=== PATIENT | female | born 1980 | race Caucasian/White ===

== ENCOUNTER 2016-12-12 16:01 | Emergency (ER) | payer OTHER ==
[~2016-12-12] VITALS: Ht 162.6 cm; Wt 72.6 kg
[~2016-12-12 16:01] MED LIST: AMOXICILLIN500 M3 PO; BACTRIM 400-801 EACH PO; BACTRIM DS 8001 TAB PO; FISH OIL CONC1000 MG PO; IBUPROFEN800 MG PO; MULTIVITAMIN1 TAB PO; PERCOCET 5-3251 EACH PO; PERCOCET 500 MG1 TAB PO; PREDNISONE10 MG PO; PRENATAL1 TA2 PO; SERTRALINE HYD100 MG PO; VICODIN5-300 PO
[2016-12-12 16:05] VITALS: BP 116/74
--- NOTE | 2016-12-12 16:05 | ED SKIN/ALLERGY COMPLAINT ---
History of Present Illness General Chief Complaint: Skin Rash/ Abcess Stated Complaint: PT ABSCESS ON THE RIGHT SIDE Source: patient, old records Exam Limitations: no limitations Vital Signs & Intake/Output Vital Signs & Intake/Output Vital Signs Date Time Temp Pulse Resp B/P Pulse O2 O2 Flow FiO2 Ox Delivery Rate 12/12 1605 98.4 80 18 116/74 97 Room Air Allergies Coded Allergies: MDX - Azithromycin (RASH, LIP SWELLING 11/29/14) MDX - Vancomycin (VANCOMYCIN) (MUSCLE CRAMPING, JOINT PAIN 11/29/14) Reconcile Medications Amoxicillin 500 MG TABLET 1 TAB PO TID CELLULITIS Amoxicillin/Potassium Clav (Augmentin 875-125 Tablet) 875 MG-125 MG TABLET 1 TAB PO BID dental abscess Fish Oil (Fish Oil Concentrate) (Unknown Strength) SGL (Unknown Dose) PO DAILY SUPPLEMENT (Reported) HYDROCODONE/ACETAMINOPHEN (Hydrocodon-Acetaminophen 5-325) 1 EACH TABLET 1 TAB PO Q6HR PRN PAIN Multivitamin (Multiple Vitamins) 1 EACH TABLET 1 TAB PO DAILY SUPPLEMENT ( Reported) Oxycodone HCl/Acetaminophen (Percocet 5-325 MG Tablet) 1 EACH TABLET 1-2 TAB PO Q6P PRN PAIN Oxycodone HCl/Acetaminophen (Percocet 5-325 MG Tablet) 5 MG-325 MG TABLET 1 TAB PO BID PRN breakthrough pain Prednisone 10 MG TABLET 0 TAB PO DAILY ECZEMA 3 TABS A DAY X 3 DAYS 2 TABS A DAY X 3 DAYS 1 TABS A DAY X 3 DAYS SERTRALINE HCL (Sertraline Hydrochloride) 100 MG TABLET 1 TAB PO DAILY DEPRESSION (Reported) Sulfamethoxazole/Trimethopri (Bactrim Ds 800 MG-160 MG) 1 TAB TAB 1 TAB PO BID CELLULITIS Sulfamethoxazole/Trimethoprim (Bactrim 400-80 MG Tablet) 1 EACH TABLET 1 TAB PO BID CELLULITIS Triage Nurses Notes Reviewed? yes Onset: Abrupt Duration: day(s): (3), constant Timing: recent history Severity: moderate Severity Numbers: 7 Location: MOUTH Possible Factors: CRACKED TOOTH Associated Symptoms: DENIES HPI: 36 Year old female presents complaining of right upper dental pain for the past few days-sudden in onset. pt states she cracked the tooth a long time ago however has been putting off getting pulled. no sore throat, fever, chills. no change in her voice, difficulty swallowing, cough or any other symptoms. pain si worse with eating and palpationg. pt has been taking tylenol/motrin without improvement. scheduled to see dentist on wednesday of this upcoming week. no facial swelling, trauma or other injury.l Past History Travel History Traveled to [place] past 21 day No Medical History Any Pertinent Medical History? 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 No Review of Systems Review of Systems Constitutional: Reports: see HPI. All Other Systems: Reviewed and Negative Comments Review of systems: See HPI, All other systems negative. Constitutional, no chills no fever, no malaise HEENT: No visual changes no sore throat no congestion Cardiovascular: No chest pain , no palpitation Skin, no rashes, no change in skin Respiratory: No dyspnea no cough no sputum GI: No nausea no vomiting, : No dysuria Muscle skeletal: No joint pain, no back pain, no neck pain, Neurologic: No numbness no headache Psych: No stress Heme/endocrine: No bruising no bleeding Immunology: No lymphadenopathy Physical Exam Physical Exam General Appearance: well developed/nourished, no apparent distress, alert, awake Comments: Well-developed well-nourished patient in no apparent distress. HEENT: Atraumatic, extraocular motion intact, MOIST MUCOUS MEMBRNES, (+) R UPPER DENTAL TENDERNESS, SMALL GINGIVAL ABSCESS, PHARYNX IS WNL, NO ERYTHEMA, NO EXUDATE Neck: Supple, FROM, no lymphadenopathy Back: FROM Cardiovascular: Regular rate and rhythms no murmurs rubs Respiratory: No respiratory distress. Patient speaking in full complete sentences. Breath sounds clear to auscultation bilaterally: NO W/R/R Extremities: full range of motion Neuro: Alert and oriented x3 Skin: Warm & dry;No appreciable rash on exposed skin Psych: Mood affect normal, normal memory normal judgment. Progress Differential Diagnosis: DENTAL ABSCESS, TOOTHACHE, PAROTITIS, SILADOLITHIASIS, LUDWIGS ANGINA, EPIGLOTTITS Plan of Care: PT CLINICALLY APPEARS WELL, SCHEDULED TO SEE DENTIST IN 4 DAYS. RX FOR PERCOCET AND AUGMENTIN PROVIDED. SHE FEELS COMFORTABLE WITH PLAN, I ANSWERED ALL OF HER QUESTIONS. Departure Departure Time of Disposition: 0 Disposition: HOME OR SELF CARE Condition: Stable Clinical Impression Primary Impression: Dental abscess Referrals: HENNA MCCULLOUGH MD (PCP/Family) Additional Instructions: follow up with your dentist as scheduled on wednesday. augmentin as directed, percocet for breakthrough pain- no driving or drinking alcohol while taking. ibuprofen 800mg eveyr 8 hours. return to the er with any concerns these prescriptions were sent to your [facility] pharmacy. Departure Forms: Customer Survey General Discharge Information Prescriptions: Current Visit Scripts Amoxicillin/Potassium Clav (Augmentin 875-125 Tablet) 1 TAB PO BID #14 TAB Oxycodone HCl/Acetaminophen (Percocet 5-325 MG Tablet) 1 TAB PO BID PRN breakthrough pain #10 TAB
[2016-12-12] MEDS ORDERED: PERCOCET 5-3251 EACH PO (16:22)
[2016-12-12] MEDS ORDERED: AUGMENTIN 875-1 EACH PO ×2 (16:22→18:40)
== END 2016-12-12 16:32 ==
LOC: ERH 16:01
DX: K04.7 Periapical abscess without sinus (principal)

== ENCOUNTER 2017-11-20 15:10 | Emergency (ER) | payer OTHER ==
[~2017-11-20] VITALS: Ht 162.6 cm; Wt 75.3 kg
[~2017-11-20 15:10] MED LIST changes: +AMOXICILLIN875 M1 PO; +AUGMENTIN 875-1 EACH PO; +BACTRIM DS TAB1 EACH PO; +LORAZEPAM0.5 M1 PO; +REXULTI2 M1 PO; +TRIAMCINOLONE A15 G1 TOP; +VESICARE10 MG PO; +ZOLOFT100 M1 PO
--- NOTE | 2017-11-20 15:37 | ED PSYCHIATRIC COMPLAINT ---
History of Present Illness General Chief Complaint: Psychiatric Related Complaint Stated Complaint: PT POSTIVE FOR SI Source: patient, family Exam Limitations: no limitations Vital Signs & Intake/Output Vital Signs & Intake/Output Vital Signs Date Time Temp Pulse Resp B/P B/P Pulse O2 O2 Flow FiO2 Mean Ox Delivery Rate 11/20 1813 89 19 114/69 97 Room Air 11/20 1725 Room Air 11/20 1516 96.8 91 18 133/88 98 Room Air ED Intake and Output 11/21 0000 11/20 1200 Intake Total 100 Output Total Balance 100 Intake, Oral 100 Patient 166 lb Weight Weight Estimated Measurement Method Allergies Coded Allergies: adhesive tape (UNKNOWN 07/09/17) ADHESIVE TAPE PER ANTIBIOTIC ORDER SHEET OF 06/17/17 (SJS) azithromycin (From ZITHROMAX) (RASH, LIP SWELLING 07/09/17) vancomycin (MUSCLE CRAMPING, JOINT PAIN 07/09/17) Reconcile Medications Amoxicillin 875 MG TABLET 1 TAB PO BID cellulitis/abscess Brexpiprazole (Rexulti) 2 MG TABLET 1 TAB PO DAILY DEPRESSION (Reported) Lorazepam 0.5 MG TABLET 1 TAB PO BIDP PRN ANXIETY (Reported) Oxycodone HCl/Acetaminophen (Percocet 5-325 MG Tablet) 5 MG-325 MG TABLET 1-2 TAB PO BID pain Sertraline HCl (Zoloft) 100 MG TABLET 2 TAB PO DAILY DEPRESSION (Reported) Solifenacin Succinate (Vesicare) 10 MG TABLET 1 TAB PO QPM BLADDER (Reported) Sulfamethoxazole/Trimethoprim (Bactrim Ds Tablet) 800 MG-160 MG TABLET 1 TAB PO BID cellulitis Triamcinolone Acetonide 0.1 % CREAM..G. 1 MAISHA TOP BID ECZEMA Triage Note: PATIENT TO ER C/C +SI LAST NIGHT, WALKED INTO TRAFFIC ON [address] PATIENT DENIES SI/HI AT THIS TIME. DENIES DAILY ETOH/DRUG USE, ADMITS TO HAVING A FEW DRINKS LAST NIGHT. PATIENT CALM AND COOPERATIVE IN TRIAGE WITH SPOUSE. Triage Nurses Notes Reviewed? yes Onset: Gradual Duration: worse persistent since (1 day) Timing: recent history Severity: moderate Associated Symptoms: anxiety, impaired concentration, injury, suicidal ideation : No Patient currently breastfeeds: No HPI: pt is a 37-year-old female with history of anxiety and depression presenting to the emergency department with chief complaint of suicidal ideation. She reports that her depression has been increasing over the past 2 weeks. Denies change in medications. She still has been taking medications as prescribed. Denies any homicidal ideation. She reports that she had a few alcoholic beverages yesterday evening and tried to walk into traffic but was stopped by someone. Denies any current suicidal ideation. Denies homicidal ideation. No auditory or visual hallucinations. Drinks occasionally. Denies drug use. (Garima Finn) Past History Travel History Traveled to [place] past 21 day No Medical History Any Pertinent Medical History? 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 No (Garima Finn) Review of Systems Review of Systems Constitutional: Reports: no symptoms. Comments Review of systems: See HPI, All other systems negative. Constitutional, no chills fever or weight loss HEENT: No visual changes no sore throat no congestion Cardiovascular: No chest pain ,palpitation , orthopnea or ankle swelling Skin, no jaundice no rashes Respiratory: No dyspnea cough sputum or hemoptysis GI: No nausea no vomiting : No dysuria No hematuria Muscle skeletal: no back pain, no neck pain, Neurologic: No numbness no confusion, no headaches Psych: Positive stress, anxiety and depression Heme/endocrine: No bruising no bleeding no polyuria or polydipsia Immunology: No splenectomy or history of AIDS (Garima Finn) Physical Exam Physical Exam General Appearance: well developed/nourished, no apparent distress, alert, awake , comfortable Neurological/Psychiatric: oriented x 3 Comments: Well-developed well-nourished person in no acute distress HEENT: Atraumatic, normocephalic Neck: Normal inspection Cardiovascular: Regular rate and rhythms no murmurs rubs or gallops, normal JVP Respiratory: Chest nontender. No respiratory distress.breath sounds clear to auscultation bilaterally Extremity: No edema Neuro: Alert oriented x3 Skin: No appreciable rash on exposed skin, skin is warm and dry. Psych: depressed mood, flat affect, memory and judgment is normal. SAD PERSONS SAD PERSONS Response Value Depression/Hopelessness? yes 2 Previous Attempts/Psych Care yes 1 Rational Thinking Loss? yes 2 Organized/Serious Attempt yes 2 Social Support? has support 0 Total 7 SAD PERSONS Done? yes (Kadie GUAN,Garima) Progress Differential Diagnosis: drug intoxication, drug overdose, drug withdrawal, hypoglycemia, hypothyroidism, depressive disorder, generalized anxiety disorder, mood disorder Plan of Care: Orders Procedure Date/time Status Continuous Observation Monitor 11/20 153 Active URINE 11/20 153 Complete URINE DRUG SCREEN FOR ER ONLY 11/20 153 Complete TSH REFLEX 11/20 153 Complete ETHANOL 11/20 1536 Complete COMPREHENSIVE METABOLIC PANEL 11/20 1536 Complete CBC WITHOUT DIFFERENTIAL 11/20 1536 Complete ED CRISIS PSYCH CONSULT 11/20 153 Active Laboratory Tests 11/20/17 1709: Urine Opiates Screen < 100.00, Methadone Screen < 40, Barbiturate Screen < 60, Ur Phencyclidine Scrn < 6.00, Amphetamines Screen 366, U Benzodiazepines Scrn < 85, Urine Cocaine Screen < 50, Urine Cannabis Screen < 5.00, Urine Test NEGATIVE 11/20/17 1617: Anion Gap 9, Estimated GFR > 60, BUN/Creatinine Ratio 17.1, Glucose 89, Calcium 9.4, Total Bilirubin 0.4, AST 20, ALT 30, Alkaline Phosphatase 86, Total Protein 7.3, Albumin 4.2, Globulin 3.1, Albumin/Globulin Ratio 1.4, TSH &T3 &Free T4 Intrp 1.150, CBC w Diff NO MAN DIFF REQ, RBC 4.44, MCV 87.0, MCH 28.3, MCHC 32.6 L, RDW 14.5, MPV 8.4, Gran % 64.1, Lymphocytes % 24.4, Monocytes % 6.8, Eosinophils % 4.4, Basophils % 0.3, Absolute Granulocytes 4.2, Absolute Lymphocytes 1.6, Absolute Monocytes 0.5, Absolute Eosinophils 0.3, Absolute Basophils 0, Serum Alcohol < 10.0 Comments: 11/20/2017 7:48:16 PM social media manager spoke with on-call psychiatrist. They believe that patient has protective factors and will have close follow-up and patient not currently suicidal. Patient was cleared by crisis for discharge and follow-up with outpatient treatment. Patient and family feel comfortable going home. Denies any suicidal or homicidal ideation. 11/20/2017 8:40:40 PM social media manager was able to speak with the patient's psychiatrist. CLEARED FOR DISCHARGE HOME. (Garima Finn) Departure Departure Time of Disposition: 2040 Disposition: HOME OR SELF CARE Condition: Stable Clinical Impression Primary Impression: Depression with suicidal ideation Referrals: Tre SANFORD,Apryl (PCP/Family) Additional Instructions: FOLLOW Up with recommendations made by crisis FO RMONDAY MORNING. Return if YOU develop any suicidal ideation ,HOMICIDAL IDEATION, worsening symptoms or concerns. Take all medications as prescribed. Avoid any alcohol or illicit drug use. Departure Forms: Customer Survey General Discharge Information (Garima Finn) PA/APPRENTICE COOK Co-Sign Statement Statement: ED Attending supervision documentation- [] I saw and evaluated the patient. I have also reviewed all the pertinent lab results and diagnostic results. I agree with the findings and the plan of care as documented in the PA's/APPRENTICE COOK's documentation. [x] I have reviewed the ED Record and agree with the PA's/APPRENTICE COOK's documentation. [] Additions or exceptions (if any) to the PAs/APPRENTICE COOK's note and plan are summarized below: [] (Tania SANFORD,Andres Gordon)
--- NOTE | 2017-11-20 15:42 | ED PSY CRISIS COLLATERAL NOTE ---
Collateral Note Collateral Note Family/Inform/Susan Contacts: Crisis recieved call from patient this morning. She was originally looking to speak with someone at [facility]. Pt only gave her first name "Sary" stating that she spoke to her psychiatrist, whom she did not identify, and she recommended that she follow up with [facility]. Pt shared that last night she had a little to drink and was [place] traffic [place] [address]. Pt reports she was not feeling suicidal at the time and the protector factors identified were her children were home with her as well as her . Pt was encouraged to come to the ED for a crisis evaluation.
[2017-11-20 16:23] LABS: ABSOLUTE BASOPHIL COUNT 0 /CUMM (0.0-0.2); ABSOLUTE EOSINOPHIL COUNT 0.3 /CUMM (0.0-0.7); ABSOLUTE GRANULOCYTE CT 4.2 /CUMM (1.4-6.5); ABSOLUTE LYMPH COUNT 1.6 /CUMM (1.2-3.4); ABSOLUTE MONOCYTE COUNT 0.5 /CUMM (0.10-0.60); BASOPHIL % 0.3 % (0.0-2.0); EOSINOPHIL % 4.4 % (0-5); GRANULOCYTE % 64.1 % (42.2-75.2); HEMATOCRIT 38.6 % (37-47); MEAN CORPUSCULAR HGB 28.3 PG (27.0-31.0); MEAN CORPUSCULAR HGB CONC 32.6 G/DL (33.0-37.0); MEAN PLATELET VOLUME 8.4 FL (7.4-10.4); PLATELET COUNT 278 /CUMM (130-400); RBC DISTRIBUTION WIDTH 14.5 % (11.5-14.5); RED BLOOD CELL CT 4.44 /CUMM (4.20-5.40); WHITE BLOOD CELL COUNT 6.6 /CUMM (4.8-10.8)
[2017-11-20 18:13] VITALS: BP 114/69
--- NOTE | 2017-11-20 20:54 | ED PSYCH CRISIS CONSULTATION ---
Crisis Consult Basic Assessment Date of Consult: 11/20/17 Responsible Person/Accompanied By: Self/ Insurance Authorization: Insurance #1: Insurance name: [employer] Phone number: Policy number: [id number] Group number: [id number] Authorization number: ED Provider: Patient's ED Provider: Garima Finn Primary Care Physician: Patient's PCP: Apryl Toledo MD PCP's Current Psychiatrist: Aaron Oconnor MD Chief Complaint: Psychiatric Related Complaint Patient's Quote: "I understand I need to ask for help" Present Illness: Pt is a 37 year old female referred to the ED by Génesis Gaxiola APRN. Pt reports she has been "really depressed for the past two weeks". Pt said on 11/19/17, she went out to a birthday constitution party with friends after work at [employer] in [place] and she drank T. Vodka, she was feeling overwhelmed and was throwing up and she wanted to escape. Pt walked into traffic on the [address], as she got to the other side of the road her friends were attempting to hold her she became belligerent and aggressive towards them. Pt states I realized I almost got hurt and I wasn't allowing my friends to help me. Pt then said "I don't want to hurt myself" However, "it was enough to scare me" Pt presents with a flat affect, she report continuous feelings of depression and anxiety. Pt denies current thoughts of suicide and said she does not have a history of suicide attempts. Pt was alert and oriented. She denies feeling suicidal now and denied AH/VH. Pt resides in [place] with her of 18 years and their children, ages 16, 11 and 3. 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 Current stressors, she was attempting to complete an RN course online and became overwhelmed and stopped. Recently, she learned that the [facility] is garnishing her paycheck for unpaid taxes. Pt states she lost her grandfather approximately 1 year ago and she was very close to him. She is still grieving that loss. Pt reports strong family history of mental illness both parents, father Bipolar and mother depression and anxiety. Pt states she was diagnosed with Depression in 2007 and treated with Zoloft 200mg and Rexulti 3mgs. Pt is treated by Génesis Gaxiola APRN at [facility] in [place]. Pt has an appointment with Ms. Gaxiola on Wednesday11/22/17 at 6pm. Pt's Utox was negative. Pt states she does not have a drinking problem and she does not drink alcohol daily. Phone contact with Génesis Gaxiola who said she spoke to the pt today and sent her to the ED for an evaluation because the pt told her she walked out into traffic. She said the pt told her she almost hurt herself walking into traffic and that the pt felt scare and concerned. Also, Génesis described the pt as high anxiety, depressed, with a "wishy washy" type presentation and a personality disorder. Génesis was unsure about whether the pt was safe and so she sent the pt to the ED for an evaluation and encouraged the pt to inquire about an intake for IOP. Patient's Address: [address] [place] [address] Other Phone Number: Who Do You Live With? Family Family/Informants Interviewed: Face to Face with pt's Stevie. He states does not believe his is suicidal. He vows his is not an alcoholic. Both the pt and her agreed to a safety plan for her this weekend, until she is able to get to her appointments next week. Allergies - Coded Allergies: adhesive tape (UNKNOWN 07/09/17) ADHESIVE TAPE PER ANTIBIOTIC ORDER SHEET OF 06/17/17 (SJS) azithromycin (From ZITHROMAX) (RASH, LIP SWELLING 07/09/17) vancomycin (MUSCLE CRAMPING, JOINT PAIN 07/09/17) Current Medications - Scheduled Medications Amoxicillin 875 MG TABLET 1 TAB PO BID cellulitis/abscess #20 TAB Prescribed by Hamlet Angela on 07/09/17 Brexpiprazole (Rexulti) 2 MG TABLET 1 TAB PO DAILY DEPRESSION (Reported) Entered as Reported by Argenis Vora on 06/14/17 1157 Oxycodone HCl/Acetaminophen (Percocet 5-325 MG Tablet) 5 MG-325 MG TABLET 1-2 TAB PO BID pain #10 TAB Prescribed by Hamlet Angela on 07/11/17 Sertraline HCl (Zoloft) 100 MG TABLET 2 TAB PO DAILY DEPRESSION (Reported) Entered as Reported by Argenis Vora on 06/14/17 1157 Solifenacin Succinate (Vesicare) 10 MG TABLET 1 TAB PO QPM BLADDER #30 ( Reported) Entered as Reported by Karan Gutierrez on 07/09/17 1256 Sulfamethoxazole/Trimethoprim (Bactrim Ds Tablet) 800 MG-160 MG TABLET 1 TAB PO BID cellulitis #20 TAB Prescribed by Hamlet Angela on 07/09/17 Triamcinolone Acetonide 0.1 % CREAM..G. 1 MAISHA TOP BID ECZEMA #1 TUBE Prescribed by Rik Cast on 07/13/17 Scheduled PRN Medications Lorazepam 0.5 MG TABLET 1 TAB PO BIDP PRN ANXIETY #60 (Reported) Entered as Reported by Karan Gutierrez on 07/09/17 1256 Laboratory Results: Laboratory Tests 11/20/17 1709: Urine Opiates Screen < 100.00, Methadone Screen < 40, Barbiturate Screen < 60, Ur Phencyclidine Scrn < 6.00, Amphetamines Screen 366, U Benzodiazepines Scrn < 85, Urine Cocaine Screen < 50, Urine Cannabis Screen < 5.00, Urine Test NEGATIVE 11/20/17 1617: Anion Gap 9, Estimated GFR > 60, BUN/Creatinine Ratio 17.1, Glucose 89, Calcium 9.4, Total Bilirubin 0.4, AST 20, ALT 30, Alkaline Phosphatase 86, Total Protein 7.3, Albumin 4.2, Globulin 3.1, Albumin/Globulin Ratio 1.4, TSH &T3 &Free T4 Intrp 1.150, CBC w Diff NO MAN DIFF REQ, RBC 4.44, MCV 87.0, MCH 28.3, MCHC 32.6 L, RDW 14.5, MPV 8.4, Gran % 64.1, Lymphocytes % 24.4, Monocytes % 6.8, Eosinophils % 4.4, Basophils % 0.3, Absolute Granulocytes 4.2, Absolute Lymphocytes 1.6, Absolute Monocytes 0.5, Absolute Eosinophils 0.3, Absolute Basophils 0, Serum Alcohol < 10.0 Past History Past Medical History Neurological: NONE, SKIN RASH EENT: NONE Cardiovascular: NONE Respiratory: NONE Gastrointestinal: NONE Hepatic: NONE Renal: NONE Musculoskeletal: MRSA IN WOUNDS Psychiatric: anxiety, depression Endocrine: NONE Blood Disorders: NONE Cancer(s): NONE STARS SPECIALIST/Reproductive: NONE Past Surgical History Surgical History: none Psychosocial History Strengths/Capabilities: Pt's is supportive 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 Physical Limitations (Interventions): None Psychiatric Treatment History Psych Treatment Psychiatric Treatment Yes Inpatient Treatment No Outpatient Treatment Yes Location of Treatment [facility] Reason for Treatment Depression & Anxiety Dates of Treatment Since 2012 Response to Treatment Positive Diagnosis by History: Depression Anxiety Substance Use/Abuse History Drug Use/Abuse Substances Used/Abused Yes Substance Used/Abused Alcohol First Use Age 25 Last Used 11/19/17 How much used/taken Unknown How often Occasionally For how long N/A Route of use Oral Substance Abuse Treatment Substance Abuse Treatment Past Substance Abuse [place] No Inpatient Treatment No Outpatient Treatment No Location of Treatment N/A Reason for Treatment N/A Dates of Treatment N/A Response to Treatment N/A Current Mental Status Mental Status Orientation: Person, Place, Situation Affect: Anxious, Flat, Sad Speech: Soft Neuro-vegetative: Sleep Disturbance Appearance Appearance- Dress/Hygiene: Clean, groomed, hospital clothing Behaviors Thought Process: WNL Thought Content: WNL Memory: WNL Insight: Fair SI/HI Risk Assessment Past Suicidal Ideation/Attempts No Current Suicidal Ideation/Att No Past Homicidal Ideation/Att: No Degree of Intent: None Danger To: N/A Gravely Disabled: N/A Risk Factors: high anxiety/distress Lethality Ratin PTSD Checklist PTSD Done? patient declined ED Management Sitter: Yes Restraints: No DSM5/PS Stressors/Medical Prob Diagnosis' (DSM 5, Stressors, Medical): F32.9 Depressive Disorder Unspecified, F41.1 Anxiety, F10.10 Alcohol Use Disorder Mild Current GAF: 35 Departure Disposition Psych Medical Clearance Date: 11/20/17 Medically Cleared at: 0337 Time Started: 629 Time Ended: 699 Psychiatrist Consulted: Aaron Oconnor MD Date Disposition Established: 11/20/17 Time Disposition Established: 699 Plan for Disposition - Modality: [facility] Facility: [facility] Follow-up Appt Date: 11/24/17 Follow-Up Appt Time: 0930 Contact: [facility] Telephone: [phone] Rationale for Disposition: Pt denies suicidal ideation at this time. Pt does not meet criteria for inpatient admission. Pt discharged with appointment for IOP on 11/24/17. Discussed safety plan with pt and her Stevie Valdivia. Referrals Tre SANFORD,Apryl (PCP/Family)
== END 2017-11-20 20:41 ==
LOC: ERH 15:10
PROVIDERS: Physician Assistant
DX: F32.9 Major depressive disorder, single episode, unspecified (principal); R45.851 Suicidal ideations; Z72.89 Other problems related to lifestyle
CPT/HCPCS: 80307; 81025; G0463; G0480